=== PATIENT | male | born 1960 | race Caucasian/White ===

== ENCOUNTER → 2021-03-01 | Outpatient (CLI) | payer BC ==
[2014-02-18 08:57] VITALS: BP 117/80
[~2021-03-01] MED LIST: AMOX1TAB24 PO; FLEC100T PO; METO-239 PO; RANI150C PO
--- NOTE | 2021-03-01 13:43 | RAD ---
XR FOOT_LEFT 3 VIEWS DATE: 03/01/2021 10:47 AM INDICATION: LT FOOT PAIN, STEPPED ON GLASS COMPARISON: None. FINDINGS: Bones: There is no evidence of acute fracture or dislocation. Plantar calcaneal enthesophyte. Joints: Mild degenerative changes of the first MTP joint. Moderate degenerative changes of the midfoo t Miscellaneous: 3 mm opaque density in the plantar soft tissues at the level of the midfoot IMPRESSION: 3 mm opaque density in the plantar soft tissues at the level of the midfoot, which may represent a fo reign body. Electronically signed by: Janak Minaya MD (03/01/2021 1:41 PM) [id number]
== END ==
LOC: PMGORTHO 08:50
PROVIDERS: ATTEND Podiatrist
DX: S91.302A Unspecified open wound, left foot, initial encounter (principal); M19.072 Primary osteoarthritis, left ankle and foot; M77.32 Calcaneal spur, left foot
CPT/HCPCS: 87071; 87075; 87076; 87077; 87186

== ENCOUNTER 2021-03-02 06:43 | Day surgery (SDC) | payer BC ==
[~2021-03-02] VITALS: Ht 162.6 cm; Wt 97.0 kg
[~2021-03-02 06:43] MED LIST changes: -AMOX1TAB24 PO; +HYDROmorphone 2 MG/ML INJ. IVP PRN; +IV RINGERS,LACTATED 1000ML 1,000 ML IV SCH; +MORPHINE SULFATE 2 MG/ML INJ. IVP PRN; +PROCHLORPERAZINE 10 MG/2 ML VIAL. IVP PRN; +fentaNYL PF VIAL 100 MCG/2 ML VIAL IVP PRN
[2021-03-02 07:54] VITALS: BP 117/80
[2021-03-02] MEDS ORDERED: ONDANSETRON PF 4 MG/2 ML VIAL. ONE (08:26)
[2021-03-02] MEDS ORDERED: PROPOFOL 10 MG/ML (20ML) VIAL. IV ONE (08:26)
[2021-03-02] MEDS ORDERED: LIDOCAINE 1% PF 5 ML VIAL. ONE (08:26)
[2021-03-02] MEDS ORDERED: DEXAMETHASONE SOD PHOS 4 MG/ML VIAL ONE (08:26)
[2021-03-02] MEDS ORDERED: fentaNYL PF VIAL 100 MCG/2 ML VIAL ONE ×2 (08:27→10:03)
[2021-03-02] MEDS ORDERED: BUPIVACAINE MPF 0.25% 30 ML VIAL. ONE (08:40)
[2021-03-02] MEDS ORDERED: SEVOFLURANE 16 TO 30 MINUTES. IH ONE ×6 (08:51→09:39)
[2021-03-02] MEDS ORDERED: KETOROLAC 30 MG/ML VIAL. ONE (09:25)
[2021-03-02] MEDS ORDERED: oxyCODONE/APAP 5/325 1 TAB TABLET PO ONE (10:00)
[2021-03-02] MEDS ORDERED: ACETAMINOPHEN 325 MG TABLET. PO ONE (10:00)
[2021-03-02] MEDS ORDERED: GABAPENTIN 100 MG CAPSULE. PO ONE (10:00)
--- NOTE | 2021-03-02 10:00 | PDOC4 ---
OPERATIVE NOTE Date: Date: Mar 02, 2021 Pre-Op Diagnosis: Left foot puncture injury near the plantar fifth metatarsal base Post-Op Diagnosis: Same as above Procedure Performed: Left foot incision and drainage Surgeon: Michi Louis DPM Anesthesia Type: general with LMA Blood Loss: 10 cc Specimans Obtained: none Findings: full thickness puncture wound at the plantar 5th met base, ~ 2x2mm. Mild periwou nd erythema without purulence, fluctuance or palpable foreign body. Minimal wound bed tunneling to the superficial plantar fascial layer without violation of tendon, bone or joint capsule. Complications: none Operative Note: Under mild sedation, patient was brought into the operating room and placed on the operating table in the supine position. A formal timeout was performed to Confirm patient's identity, procedure and procedure site. Following general anesthesia, property of antibiotics, well padded high angle tourniquet was placed to the left lower extremity. Following alcohol skin prep, 5 mL of 0.25% Marcaine plane was infiltrated Near the tarsal tunnel and sural nerve for plantar midfoot anesthesia Without disturbing the procedure site. The left lower extremity was then scrubbed, prepped and draped using aseptic techniques. Left lower leg was then exsanguinated with pressure set a 250 mmHg. The attention was directed to the plantar left fifth metatarsal base. The puncture wound measures 2 x 2 mm. Before incision/wound exploration, a sterilely draped ultrasound was used to identify and visualize the foreign body just superficial to the plantar fascial ligament. Then, the a 2-2.5cm linear, full thickness skin incision was made over the puncture wound. the incision was carried deep with care to not only protect neurovascular bundle but also avoid disturbing the deeper tissue plane. A small straight mosquito hemostat was used to retrieve the foreign body, coaxial with the puncture wound and superficial to the superficial fascia. minimal fat lobules and hematoma were evacuated without any tactile finding of a foreign body. surveillance US exam was unremarkable for a foreign body. then a mini-C arm was used and it identified, a very fainted and less thContinue exploring the wound and causing tendon, nerve, deeper tissue violation or damage. copious saline solution was used to irrigate the wound bed. All the necrotic tissue was removed. There was no purulence or fluctuates noted to the wound bed. the wound was closed with 3-0 nylon. Tourniquet was deflated and adequate digital perfusion was noted. The site was dressed with xeroform, gauze, abd, kerlix and SON. Patient tolerated the procedure and anesthesia well with vital Signs stable and n/v status intact. Patient was transferred to PACU for continuous recovery. Pending three view foot x-ray. I'll explain to patient that the wound bed was evacuated and decompressed and irrigated. The 3 mm foreign body was not found prominent or at a high risk of causing recurrent infection. Rather, continue wound exploration may cause more n/v damage. MICHI LOUIS DPM Mar 02, 2021 10:00
[2021-03-02] MEDS: fentaNYL PF VIAL 100 MCG/2 ML VIAL IVP PRN ×2 (10:08→10:16)
[2021-03-02 10:40] VITALS: BP 156/86
[2021-03-02] MEDS ORDERED: AMOX1TAB24 PO (10:50)
--- NOTE | 2021-03-02 12:08 | RAD ---
EXAM: Left foot, 3 views. HISTORY: Pain. COMPARISON: 03/01/2021 FINDINGS: 3 views of the right foot are obtained. There is a persistent 3 mm linear density within th e plantar aspect of the right foot. This appears to be separate from the plantar fascia may be a tiny foreign body. There is a small plantar spur. There is mild degenerative spurring involving the midfo ot. IMPRESSION: 1. No acute osseous finding. 2. 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 3. 3 mm linear density within the plantar foot soft tissue. This is unchanged. The possibility of a t iny foreign body is not excluded. Electronically signed by: Paulina Parisi MD (03/02/2021 10:55 AM) [id number]
== END 2021-03-02 11:40 | disposition home or self-care (01) ==
LOC: SURG 06:43
PROVIDERS: ATTEND Podiatrist
DX: M79.672 Pain in left foot (principal); I48.91 Unspecified atrial fibrillation; G47.30 Sleep apnea, unspecified; M19.90 Unspecified osteoarthritis, unspecified site; Z79.899 Other long term (current) drug therapy; Z72.89 Other problems related to lifestyle; Z98.890 Other specified postprocedural states
CPT/HCPCS: 28192; 73630; A4930; A6223; A6253; A6402; A6449; J0690; J1100; J1885; J2405; J2704; J3010; J3490